=== PATIENT | female | born 1960 | race Caucasian/White ===

== ENCOUNTER → 2017-07-30 | Outpatient (CLI) | payer BC | END | disposition home or self-care (01) | LOC: HKI 13:20 | DX: Z47.1 Aftercare following joint replacement surgery (principal); Z96.652 Presence of left artificial knee joint | CPT/HCPCS: 73560; 73560-LT ==

== ENCOUNTER → 2018-10-26 | Outpatient (CLI) | payer BC | END | disposition home or self-care (01) | LOC: HKI 14:43 | DX: M25.562 Pain in left knee (principal); Z96.652 Presence of left artificial knee joint | CPT/HCPCS: 73564 ==

== ENCOUNTER → 2018-11-07 | Outpatient (CLI) | payer BC | END | disposition home or self-care (01) | LOC: HKI 14:55 | DX: M25.561 Pain in right knee (principal); E66.9 Obesity, unspecified | CPT/HCPCS: 20610 ==